=== PATIENT | male | born 1965 | race Hispanic/Latino ===

== ENCOUNTER 2018-08-19 23:46 | Inpatient (IN) | payer OTHER ==
[2018-08-19 23:56] VITALS: BMI 41.8
--- NOTE | 2018-08-19 23:58 | C.PDOC ---
Time Seen by Provider: 08/19/18 23:51 Chief Complaint (Nursing): Psychiatric Evaluation Disposition - Disposition
--- NOTE | 2018-08-20 | C.PDOC ---
History Of Present Illness 52 year old male presents to the ED as a psychiatric transfer. Patient was evaluated at [facility] and accepted to for admission to this hospital's psychiatric floor prior to arrival. Patient denies any additional complaints at this time. Time Seen by Provider: 08/19/18 23:51 Chief Complaint (Nursing): Psychiatric Evaluation History Per: Patient History/Exam Limitations: no limitations Onset/Duration Of Symptoms: Hrs Current Symptoms Are (Timing): Still Present Additional History Per: Patient Past Medical History Reviewed: Historical Data, Nursing Documentation, Vital Signs - Medical History PMH: No Chronic Diseases Surgical History: No Surg Hx Family History: States: Unknown Family Hx Review Of Systems Psych: Positive for: Other (psychiatric transfer ). Negative for: Withdrawal Physical Exam - Physical Exam Appears: Non-toxic, No Acute Distress Skin: Normal Color, Warm, Dry Head: Atraumatic, Normacephalic Neck: Supple Respiratory: No Accessory Muscle Use Extremity: Normal ROM Neurological/Psych: Normal Speech, Normal Cognition, Other (no signs of withdrawal ) Medical Decision Making Medical Decision Making: Progress: Ativan PO given, no sings of withdrawal on exam but pt notes that he would like some for mild withdrawal and anxiety Strong stable gait, normal neuro exam. No trauma noted, no meningeal signs admitted to Dr. dow service Disposition - Disposition Disposition Time: 00:27 Condition: STABLE Forms: [facility] (Malagasy) - Clinical Impression Clinical Impression: MDD (major depressive disorder) - Scribe Statement The provider has reviewed the documentation as recorded by the Scribe (Jennifer Cardoza) Provider Attestation: All medical record entries made by the Scribe were at my direction and personally dictated by me. I have reviewed the chart and agree that the record accurately reflects my personal performance of the history, physical exam, medic al decision making, and the department course for this patient. I have also personally directed, reviewed, and agree with the discharge instructions and disposition.
--- NOTE | 2018-08-20 01:34 | PCM.BM ---
<Kari Briseno - Last Filed: 08/20/18 01:33> Treatment Plan Problems - Problems identified on initial assessmt Knowledge Deficit: Alcohol Use Date Initiated: 08/20/18 Time Initiated: 01:33 Assessment reference: NA Status: Active Treatment assets and liabiliti Patient Assests: ADL independent, negotiates basic needs Patient Liabilities: substance abuse, medical problems - Milieu Protocol Maintain good personal hygiene: daily Encourage regular showers, daily Remind patient to perform daily oral care, daily Assist patient to perform ADL's Conduct patient checks and document Observation sheet: Q15 minutes Maintain personal safety: every shift Educate patient to report safety concerns to staff, every shift Monitor environment for contraband/sharps Medication safety: Monitor for expected outcome, potential side effects: every shift, Assess barriers to learning: every shift, Assess readiness for medication education: every shift <Sheela Morris - Last Filed: 08/21/18 07:52> Family Contact Family involvement: Famliy/SO not involved - Goals for Treatment Patient goals for treatment: Complete detox and apply for short-term residential program. Discharge/Continuing Care - Education Needs Education Needs: Patient Medication, Patient Diagnosis/Disease Process, Patient Coping Skills, Patient Anger Management skills, Patient Placement options, Patient Community resources - Discharge Discharge Criteria: Ability to care for self, No longer exhibiting s/s of withdrawal, Reduction of target symptoms Discharge to:: Substance Abuse Rehab - Treatment Team Participation Patient/Family/SO Statement: 08/21/18 07:53 "I wanna go inpatient if i CAN GET IN SOMEWHERE..." Discussed with Family/SO: No Was Patient/Family/SO present at Treatment Team Meeting: Yes <Natalia Tran - Last Filed: 08/26/18 00:34> - Diagnosis (1) Alcohol use disorder, severe, dependence Status: Acute Interventions: 08/20/18 20:34 * Assess 7x/week regarding severity of withdrawal * Educate regarding risks, benefits, side effects and alternatives of medications * Use Motivational Interviewing for abstinence * Use CBT for relapse prevention * Medication management for withdrawal symptoms * Encourage medication assisted treatment *
[2018-08-20] MEDS: Multiple Vitamins Tab PO SCH (09:40)
[2018-08-20] MEDS ORDERED: Multiple Vitamins Tab PO SCH (10:30)
[2018-08-20 12:00] LABS: ALB/GLOB RATIO 1.4 (1.0-2.1); ALBUMIN 3.2 g/dL (3.5-5.0); ALT/SGPT 18 U/L (21-72); AST/SGOT 31 U/L (17-59); BLOOD UREA NITROGEN 7 mg/dL (9-20); CALCIUM 9.2 mg/dl (8.6-10.4); GFR NON-AFRICAN AMERICAN > 60; HDL CHOLESTEROL 57 mg/dL (30-70)
[2018-08-20 12:11] LABS: LDL CHOLESTEROL 57 mg/dL (0-129)
--- NOTE | 2018-08-20 13:29 | PCM.PSYCH ---
Initial Psychiatric Evaluation - Initial Psychiatric Evaluation Type of Admission: Voluntary Legal Status: Capacity Chief Complaint (in patient's own words): "I felt ignored at [facility]" Patient's Reaction to Hospitalization: He is seen, chart reviewed, and case discussed. He is a 52 year old male who is single with no children. Patient lives with roommate in [place]. He currently is not employed, and is receiving SSI and [employer] benefits. He is cooperative, talkative, slightly on edge and not making eye contact. Patient was evaluated at [facility] and transferred to [facility] for admission into detox unit. Patient drinks about 4-5 24 ox cans daily, but daily patient has been doing twice the amount, last time patient relapsed was May 2018. First time patient had alcohol was when he was 12 years old, patient noticed his drinking to be problematic around 10-15 years ago. Patient has been hospitalized more than 10 times. Denies Suicidal or Homicidal ideation. Patient states he has not been able to sleep last night, and is having difficulty focusing when asked questions, states he goes off topic. Patient admits to marihuana use. Denies other drug use. Past psych history: panic disorder, depression Past medical history: Cirrhosis, Diabetes II, back pain Allergies: Denies Traumatic history: unspecified childhood trauma Family History: Brother with drug abuse Current Medications: Active Medications Generic Name Dose Route Start Last Admin Trade Name Freq PRN Reason Stop Dose Admin Clonidine HCl 0.1 mg 08/20/18 08:52 Catapres PO Q4H PRN Symptoms of alcohol withdrawl Folic Acid 1 mg 08/20/18 10:00 08/20/18 09:41 Folic Acid PO 1 mg DAILY RENE Administration Lactulose 20 gm 08/20/18 14:00 Enulose PO TID RENE Lorazepam 1 mg 08/20/18 08:52 Ativan PO Q4H PRN Symptoms of alcohol withdrawl Lorazepam 2 mg 08/20/18 10:00 08/20/18 09:40 Ativan PO 08/25/18 09:59 2 mg Q8H RENE Administration Taper Multivitamins 1 tab 08/20/18 10:00 08/20/18 09:40 Hexavitamin PO 1 tab DAILY RENE Administration Multivitamins 1 tab 08/20/18 10:30 08/20/18 11:00 Hexavitamin PO Not Given DAILY RENE Paroxetine HCl 30 mg 03/26/19 10:30 08/20/18 11:18 Paxil PO 30 mg DAILY RENE Administration Rifaximin 550 mg 08/20/18 18:00 Xifaxan PO BID [facility] Protocol Tamsulosin HCl 0.4 mg 08/20/18 10:30 08/20/18 11:18 Flomax PO 0.4 mg DAILY RENE Administration Thiamine HCl 100 mg 08/20/18 10:00 08/20/18 09:40 Vitamin B1 Tab PO 100 mg DAILY RENE Administration Trazodone HCl 50 mg 08/20/18 08:52 Desyrel PO HS PRN Insomnia Past Psychiatric History - Past Psychiatric History Previous Treatment History: Inpatient Pertinent Medical Hx (Current Medical&Sleep Prob, Allergies): Allergies Allergy/AdvReac Type Severity Reaction Status Date / Time No Known Allergies Allergy Unverified 08/19/18 23:55 Lactulose 20 gm PO DAILY 08/19/18 clonazePAM [clonAZEPAM] 1 mg PO BID 08/19/18 Review of Systems - Psychiatric Psychiatric: Abnormal Sleep Pattern, Anxiety, Behavioral Changes, Depression, Difficulty Concentrating, Panic Attacks. absent: Homicidal Ideation, Suicidal Ideation Mental Status Examination - Personal Presentation Personal Presentation: Looks stated age - Affect Affect: Constricted - Motor Activity Motor Activity: Calm - Reliability in Providing Information Reliability in Providing Information: Fair - Speech Speech: Disorganized, Irrelevant, Tangential - Mood Mood: Depressed, Anxious - Formal Thought Process Formal Thought Process: No Impairment - Cognitive Functions Orientation: Person, Place, Situation, Time Sensorium: Alert Attention/Concentration: Easily distracted Abstract Thinking: [place] Judgement: Intact, as evidence by: Insight regarding need for hospitalization Memory: Remote intact, as evidenced by: Abilit to recall sig. life events - Risk Risk: Withdrawal - Strength & Assets Inventory Strength & Assets Inventory: Cooperative DSM 5 DX - DSM 5 DSM 5 Diagnosis: alcohol withdrawal alcohol use disorder, severe panic disorder major depressive disorder - recurrent - Recommended/Plan of Treatment Treatment Recommendations and Plan of Treatment: Ativan taper As needed medications All risks, benefits and alternatives of the meds discussed, and the pt agreed and understood. Attend groups and activities Supportive therapy and psychoeducation [place] for abstinence CBT for relapse prevention Encourage MAT Refer to rehab or IOP, and self-help groups Teach healthy lifestyle methods, i.e. diet, exercise, meditation Smoking cessation with [place] Nicotine patch if needed 34 min
[2018-08-20 17:12] LABS: LYMPH # 0.5 K/uL (1.0-4.3); MONO # 0.2 K/uL (0.0-0.8); NEUT # 2.3 K/uL (1.8-7.0); WHITE BLOOD COUNT 3.1 K/uL (4.8-10.8)
[2018-08-20 17:20] LABS: BASO % 0.7 % (0.0-2.0); EOS % 1.2 % (0.0-4.0); HEMOGLOBIN 15.2 g/dL (12.0-18.0); LYMPH % 16.3 % (20.0-40.0); MEAN CELL VOLUME 88.5 fL (80.0-94.0); MEAN CORPUSCULAR HEMOGLOBIN 31.1 pg (27.0-31.0); MEAN CORPUSCULAR HGB CONC 35.1 g/dL (33.0-37.0); MEAN PLATELET VOLUME 8.4 fL (7.2-11.7); NEUT % 74.8 % (50.0-75.0); NRBC % 0.2 % (0.0-2.0); RBC 4.89 Mil/uL (4.40-5.90)
[2018-08-21] MEDS: Multiple Vitamins Tab PO SCH (09:57)
--- NOTE | 2018-08-21 10:13 | PCM.PYCHPN ---
Psychiatric Progress Note - Psychiatric Progress Note Patient seen today, length of contact: 15 min Patient Chief Complaint: "Im still shaking" Problems Identified/Issues Discussed: The pt is seen, chart reviewed, case discussed with staff. Pt is improving slowly and needs more time, still has ongoing symptoms. Patient continues to have tremors. Patient is eating and ambulating. Pt attends groups and activities. Support given, psycho-education provided. No SEs from medications, risks discussed. After care discussed Mental Status Examination - Cognitive Function Orientation: Person, Place, Situation, Time Memory: Intact Attention: Poor Concentration: Poor Association: Loose Fund of Knowledge: WNL - Mood Mood: Depressed, Anxious - Affect Affect: Constricted, Flat, Depressed - Speech Speech: Pressured - Formal Thought Process Formal Thought Process: No Impairment - Suicidal Ideation Suicidal Ideation: No - Homicidal Ideation Homicidal Ideation: No Goal/Treatment Plan - Goal/Treatment Plan Need for Continued Stay: Discharge may exacerbated symptoms, Severe functional impairment Progress Toward Problem(s) and Goals/Treatment Plan: continue Ativan taper As needed medications All risks, benefits and alternatives of the meds discussed, and the pt agreed and understood. Attend groups and activities Supportive therapy and psychoeducation [place] for abstinence CBT for relapse prevention Encourage MAT Refer to rehab or IOP, and self-help groups Teach healthy lifestyle methods, i.e. diet, exercise, meditation Smoking cessation with [place] Nicotine patch if needed 34 min
[2018-08-22] MEDS: Multiple Vitamins Tab PO SCH (10:05)
--- NOTE | 2018-08-22 12:43 | PCM.PYCHPN ---
Psychiatric Progress Note - Psychiatric Progress Note Patient seen today, length of contact: 15 min Patient Chief Complaint: "I didnt sleep last night " Problems Identified/Issues Discussed: The pt is seen, chart reviewed, case discussed with staff. Symptoms are improving but needs more time to stabilize. Patient continues to have tremors, mostly when writing. Admits to not being able to sleep last night. Patient is eating and ambulating. Pt attends groups and activities. Support given, psycho-education provided. No SEs from medications, risks discussed. After care discussed Mental Status Examination - Cognitive Function Orientation: Person, Place, Situation, Time Memory: Intact Attention: Poor Concentration: Poor Association: Loose Fund of Knowledge: WNL - Mood Mood: Depressed, Anxious - Affect Affect: Constricted, Flat, Depressed - Speech Speech: Pressured - Formal Thought Process Formal Thought Process: No Impairment - Suicidal Ideation Suicidal Ideation: No - Homicidal Ideation Homicidal Ideation: No Goal/Treatment Plan - Goal/Treatment Plan Need for Continued Stay: Discharge may exacerbated symptoms, Severe functional impairment Progress Toward Problem(s) and Goals/Treatment Plan: continue Ativan taper As needed medications All risks, benefits and alternatives of the meds discussed, and the pt agreed and understood. Attend groups and activities Supportive therapy and psychoeducation [place] for abstinence CBT for relapse prevention Encourage MAT Refer to rehab or IOP, and self-help groups Teach healthy lifestyle methods, i.e. diet, exercise, meditation Smoking cessation with [place] Nicotine patch if needed 34 min
[2018-08-23] MEDS: Multiple Vitamins Tab PO SCH (09:46)
--- NOTE | 2018-08-23 13:48 | PCM.PYCHPN ---
Psychiatric Progress Note - Psychiatric Progress Note Patient seen today, length of contact: 15 min Patient Chief Complaint: "Not good" Problems Identified/Issues Discussed: The pt is seen again, chart reviewed, and case is discussed with the team. The pt denies any side-effects from meds. Attends activities and groups, brief individual therapy provided Not ready for discharge due to ongoing symptoms and high relapse risk. After care discussed again. Medication Change: Yes (detox chnges daily) Medical Record Reviewed: Yes Mental Status Examination - Cognitive Function Orientation: Person, Place, Situation, Time Memory: Intact Attention: Poor Concentration: Poor Association: Loose Fund of Knowledge: WNL - Mood Mood: Depressed, Anxious - Affect Affect: Constricted, Depressed - Speech Speech: Pressured - Formal Thought Process Formal Thought Process: No Impairment - Suicidal Ideation Suicidal Ideation: No - Homicidal Ideation Homicidal Ideation: No Goal/Treatment Plan - Goal/Treatment Plan Need for Continued Stay: Discharge may exacerbated symptoms, Severe functional impairment Progress Toward Problem(s) and Goals/Treatment Plan: Continue medications Support and psychoeducation daily Attend groups and activities daily Individual therapy After care planning by STEWART and the team
[2018-08-24] MEDS: Multiple Vitamins Tab PO SCH (10:04)
[2018-08-24 16:54] VITALS: RESP 18
[2018-08-25] MEDS: Multiple Vitamins Tab PO SCH (09:31)
[2018-08-25 09:42] VITALS: BP 104/65; PULSE 66; TEMP 97.7; O2SAT 104
== END 2018-08-25 10:20 | disposition home or self-care (01) | DRG 750 ==
LOC: C.ER 23:46 → C.7D 08-20 00:13
PROVIDERS: ADMIT Psychiatry & Neurology Psychiatry; ATTEND Psychiatry & Neurology Psychiatry
PROC: HZ2ZZZZ Detoxification Services for Substance Abuse Treatment (ICD-10-PCS; principal; 2018-08-20)
PROC: HZ52ZZZ Individual Psychotherapy for Substance Abuse Treatment, Cognitive-Behavioral (ICD-10-PCS; 2018-08-20)
PROC: HZ59ZZZ Individual Psychotherapy for Substance Abuse Treatment, Supportive (ICD-10-PCS; 2018-08-20)
PROC: HZ56ZZZ Individual Psychotherapy for Substance Abuse Treatment, Psychoeducation (ICD-10-PCS; 2018-08-20)
PROC: HZ42ZZZ Group Counseling for Substance Abuse Treatment, Cognitive-Behavioral (ICD-10-PCS; 2018-08-20)
PROC: HZ46ZZZ Group Counseling for Substance Abuse Treatment, Psychoeducation (ICD-10-PCS; 2018-08-20)
PROC: GZHZZZZ Group Psychotherapy (ICD-10-PCS; 2018-08-20)
PROC: GZ58ZZZ Individual Psychotherapy, Cognitive-Behavioral (ICD-10-PCS; 2018-08-20)
PROC: GZ56ZZZ Individual Psychotherapy, Supportive (ICD-10-PCS; 2018-08-20)
DX: F10.230 Alcohol dependence with withdrawal, uncomplicated (principal); K70.30 Alcoholic cirrhosis of liver without ascites; E11.9 Type 2 diabetes mellitus without complications; F33.9 Major depressive disorder, recurrent, unspecified; F41.0 Panic disorder [episodic paroxysmal anxiety]; F12.90 Cannabis use, unspecified, uncomplicated; G47.00 Insomnia, unspecified; Y90.9 Presence of alcohol in blood, level not specified